=== PATIENT | female | born 1975 | race African-American/Black ===

== ENCOUNTER 2016-12-24 18:09 | Inpatient (IN) ==
[2016-12-24] MEDS ORDERED: PANTOPRAZOLE 40 MG VIAL IV STA (20:21)
[2016-12-24] MEDS ORDERED: SODIUM CHLORIDE 0.9% 500 ML IV STA (20:21)
[2016-12-24] MEDS ORDERED: ONDANSETRON 4 MG/2 ML VIAL IV STA (20:21)
[2016-12-24] MEDS ORDERED: PANTOPRAZOLE 40 MG VIAL IV ONE (20:29)
[2016-12-24] MEDS ORDERED: ONDANSETRON 4 MG/2 ML VIAL ONE (20:30)
--- NOTE | 2016-12-24 20:42 | Emergency Department Note ---
[place] Robin Brittany, am scribing for, and in the presence of, Arthur Meraz MD 20:27. Mariya Robin Charles R, MD, personally performed the services described in this documentation, ascribed by Carolina Boyle in my presence, and it is both accurate and complete . Arrival - Arrival Chief Complaint: Non-Specific Stated Complaint: Referred by Doctor-Lab Study ED Nursing Triage Note: pt had labs drawn for a study and was told to go to an er. pt has iron of 16 and H&H of 6.3 &22.4 Mode of Arrival: Ambulatory Limitations: No Limitations Source: Patient, RN Notes Reviewed Time Seen by Provider: 12/24/16 20:08 - History of Present Illness HPI Narrative: Patient is a 40 y/o black female presenting to the ED for further evaluation of Iron level of 16 and H&H of 6.3 and 22.4. Patient reports a history of fibroids and notes that she was supposed to have a large fibroid removed sometime ago, but due to financial circumstances was unable to have procedure performed. Patient states that thereafter she began to to undergo a fibroid study per [place] [facility] physician. She notes that she is trying to get her fibroid issue resolved so that she can have kids, reporting that 8 years ago she had a miscarriage. Patient throughout study has been taking some type of medication to reduce the size of the fibroid. During history and physical patient is very hoarse, and she attributes this to beginning last December 19 when she took her father to [place] for a doctor's appointment. Patient states that she does eat a gross amount of ice, "pica"-per physician. Patient denies any abdominal pain at this time but does note it is time for her menstrual cycle. She reports that she does bleed a lot during this time. She is a patient of Dr. Lyons. No other complaint/pain. Allergies/Adverse Reactions: Allergies Allergy/AdvReac Type Severity Reaction Status Date / Time acetaminophen [From Percocet] Allergy ITCHING Verified 03/10/15 15:47 Oxycodone [From Percocet] Allergy ITCHING Verified 03/10/15 15:47 Home Medications: Home Medications Medication Instructions Recorded Confirmed Type Triamterene/Hydrochlorothiazid 1 each PO DAILY 03/10/15 12/24/16 History [Triamterene-Hctz 75-50 mg Tab] Ferrous Sulfate 325 mg PO DAILY 12/24/16 12/24/16 History Gabapentin 300 mg PO DAILY 12/24/16 12/24/16 History Review of System - Review of System 12 point system: reviewed and no additional remarkable complaints except as stated - Review of System Constitutional: Present: as per HPI. Absent: chills, fever Eyes: Absent: vision change Head/Ears/Nose/Throat: Present: see HPI Respiratory: Absent: respiratory distress Cardiovascular: Absent: chest pain, palpitations Gastrointestinal: Absent: abdominal pain, nausea, vomiting, diarrhea, constipation Genitourinary female: Absent: dysuria, frequency, urgency Musculoskeletal: Absent: arm pain, back pain, leg pain, neck pain Skin: Absent: rash Neurological: Absent: headache Psychiatric: Absent: anxiety, depression Endocrine: Absent: fatigue Hematological/Lymphatic: Absent: easy bleeding, easy bruising Medical,Surgical,& Family Hx - Medical History Cardio: History of: Hypertension Reproductive: History of: Ovarian Cysts, Reproductive Problems - Surgical History Surgical History: noncontributory - Family History Family History: noncontributory - Social History Smoking Status: Never smoker Frequency of Alcohol Use: None Type of Drug Use: None Exam Vital Signs: Vital Signs Temperature 97.6 F 12/24/16 18:20 Pulse Rate 100 H 12/24/16 18:20 Respiratory Rate 18 12/24/16 18:20 Blood Pressure 149/97 12/24/16 18:20 O2 Sat by Pulse Oximetry 99 12/24/16 18:20 - General General appearance: alert, in no apparent distress (patient is obviously hoarse) - Head Head exam: Present: atraumatic, normocephalic - Eye Eye exam: Present: PERRL, EOMI, other (pale conjuntiva). Absent: normal appearance - ENT ENT exam: Present: mucous membranes moist, TM's normal bilaterally, other (pale mm) - Neck Neck exam: Present: normal inspection, full ROM, trachea midline - Chest Chest inspection: Present: normal inspection, symmetric chest wall rise - Respiratory Respiratory exam: Present: normal lung sounds bilaterally. Absent: rales, rhonchi, wheezes - Cardiovascular Cardiovascular exam: Present: regular rate, normal rhythm, normal heart sounds. Absent: murmur, rubs, gallop - Abdominal Exam Abdominal exam: Present: soft, normal bowel sounds. Absent: distention, tenderness - Rectal Exam Rectal exam: Present: heme (+) stool - Extremities Exam Extremities exam: Present: normal inspection, full ROM - Back Exam Back exam: Present: normal inspection, full ROM - Neurological Exam Neurological exam: Present: alert, oriented X3, CN II-XII intact. Absent: motor sensory deficit - Psychiatric Psychiatric exam: Present: normal affect - Skin Skin exam: Present: warm, dry Course - Consultations Consultation #1: Dr. Schwartz will admit the patient Time: 22:37 Results - Labs CBC & BMP: 12/24/16 21:14 12/24/16 21:14 Lab Results: I have reviewed the patients labs Labs: Laboratory Tests 12/24/16 12/24/16 12/24/16 21:14 21:14 21:14 WBC 9.1 RBC 3.80 Hgb 6.4 L* Hct 24.1 L MCV 63.4 L MCH 17 L MCHC 26.6 L RDW 24.9 H Plt Count 527 H MPV 9.6 Neut % (Auto) 70.2 Lymph % (Auto) 22.3 [place] % (Auto) 4.5 Eos % (Auto) 2.3 Baso % (Auto) 0.3 Neut # (Auto) 6.4 Lymph # (Auto) 2.0 [place] # (Auto) 0.4 Eos # (Auto) 0.2 Baso # (Auto) 0.0 Immature Gran % 0.4 Nucleated RBC % 0.0 Immature Gran # 0.04 Nucleated RBCs # 0.00 INR 1.0 PT Patient/Control Mix 11.0 Sodium Potassium Chloride Carbon Dioxide Anion Gap BUN Creatinine GFR Calculation BUN/Creatinine Ratio Glucose Calculated Osmolality Calcium Magnesium Total Bilirubin AST ALT Alkaline Phosphatase Troponin I Total Protein Albumin Globulin Albumin/Globulin Ratio Urine Color Yellow Urine Appearance Slightly hazy Urine pH 5.0 Ur Specific [place] 1.020 Urine Protein Negative Urine Glucose (UA) Negative Urine Ketones Negative Urine Blood Negative Urine Nitrate Negative Urine Bilirubin Negative Urine Urobilinogen < 2.0 H Urine Leukocytes Negative Urine WBC <1 Ur Squamous Epith Cells Occasional Urine Bacteria Occasional Urine Mucus Occasional Urine Test Negative 12/24/16 21:14 WBC RBC Hgb Hct MCV MCH MCHC RDW Plt Count MPV Neut % (Auto) Lymph % (Auto) [place] % (Auto) Eos % (Auto) Baso % (Auto) Neut # (Auto) Lymph # (Auto) [place] # (Auto) Eos # (Auto) Baso # (Auto) Immature Gran % Nucleated RBC % Immature Gran # Nucleated RBCs # INR PT Patient/Control Mix Sodium 145 Potassium 3.2 L Chloride 106 Carbon Dioxide 28 Anion Gap 14.2 BUN 12 Creatinine 0.80 GFR Calculation 121 BUN/Creatinine Ratio 15.00 Glucose 69 L Calculated Osmolality 285.7 Calcium 9.3 Magnesium 1.9 Total Bilirubin < 0.39 AST 10 ALT 16 Alkaline Phosphatase 68 Troponin I < 0.015 Total Protein 7.0 Albumin 3.7 Globulin 3.3 Albumin/Globulin Ratio 1.1 Urine Color Urine Appearance Urine pH Ur Specific [place] Urine Protein Urine Glucose (UA) Urine Ketones Urine Blood Urine Nitrate Urine Bilirubin Urine Urobilinogen Urine Leukocytes Urine WBC Ur Squamous Epith Cells Urine Bacteria Urine Mucus Urine Test Critical Care Time Critical Care Time: Yes Total Critical Care Time: 60 Disposition Clinical Impression: dysmenorrhagia, Uterine fibroid, Acute blood loss anemia, GI bleed Case discussed with: patient Disposition: Still a Patient Condition: Stable Time of Disposition: 22:44
[2016-12-24 21:29] LABS: Basophils % 0.3 % (0.0-0.8); Eosinophils # 0.2 10*3/uL (0.0-0.87); Eosinophils % 2.3 % (0.00-10.9); Hematocrit 24.1 VOL% (35.7-47.0); Immature Granulocytes % 0.4 %; Immature Granulocytes Absolute 0.04 #; Lymphocytes % 22.3 % (21.3-54.2); Mean Corpuscular HGB Conc 26.6 GM/DL (32-36); Mean Corpuscular Hemoglobin 17 PG (27-34); Mean Corpuscular Volume 63.4 FL (87-102); Mean Platelet Volume 9.6 FL (9.6-12.0); Monocytes # 0.4 10*3/uL (0.11-0.8); Monocytes % 4.5 % (1.7-12.7); Neutrophils # 6.4 10*3/uL (1.4-7.4); Neutrophils % 70.2 % (38.7-73.9); Platelet Count 527 T/CUMM (130-400); Red Cell Distribution Width 24.9 % (9.3-17.3); White Blood Count 9.1 T/CUMM (4-12)
[2016-12-24 21:32] LABS: Hemoglobin 6.4 GM/DL (12.0-16.0)
[2016-12-24 21:37] LABS: Apearance,Urine Slightly Hazy (Clear); Bacteria,Urine Occasional /HPF (Few); Bilirubin,Urine Negative (Negative); Blood, Urine Negative (Negative); Glucose,Urine (UA) Negative (Negative); Ketones,Urine Negative (Negative); Mucus,Urine Occasional /LPF (Occasional); Nitrite,Urine Negative (Negative); Protein,Urine Negative; Squamous Epithelial Cell,Urine Occasional /HPF (0-10); Urine Color Yellow (Yellow); Urine Urobilinogen < 2.0 EU/DL (0.2-1.0); WBC,Urine <1 /HPF (0-6)
[2016-12-24 21:51] LABS: Alanine Aminotransferase 16 U/L (13-56); Albumin 3.7 G/DL (3.4-5.0); Alkaline Phosphatase 68 U/L (45-117); Aspartate Amino Transferase 10 U/L (0-37); Bilirubin,Total < 0.39 MG/DL (0.2-1.0); Blood Urea Nitrogen 12 MG/DL (7-18); Calcium 9.3 MG/DL (8.5-10.1); Glucose 69 MG/DL (74-106); Magnesium 1.9 MG/DL (1.8-2.4); Osmolality,Calculated 285.7 MOS/KG (273-304); Potassium 3.2 MMOL/L (3.5-5.1); Sodium 145 MMOL/L (136-145); Troponin I Only < 0.015 NG/ML (0.00-0.045)
--- NOTE | 2016-12-24 22:54 | XRay Report ---
Referring Physician: Arthur Meraz Exam: XR abdomen 2V Date: December 24, 2016 at 10:29 PM Reason: Anemia, GI bleed Comparison: Abdominal x-rays January 13, 2013 Findings: There is no evidence of bowel obstruction or free air. No definite renal calculi are identified. There is thoracolumbar scoliosis, but no acute osseous process is seen. Impression: No acute abdominal process is identified. PROCEDURE INTERPRETED AT [facility] DEPARTMENT OF RADIOLOGY Final Report Signed by: Dr. Paola Mendoza
[2016-12-25] MEDS ORDERED: ONDANSETRON 4 MG/2 ML VIAL IV PRN (01:31)
[2016-12-25] MEDS ORDERED: SODIUM CHLORIDE 0.9% 1,000 ML IV SCH (01:31)
[2016-12-25] MEDS ORDERED: SODIUM CHLORIDE 0.9% 250 ML IV PRN (01:31)
[2016-12-25] MEDS ORDERED: FUROSEMIDE 20 MG/2 ML VIAL IV ONE (02:03)
[2016-12-25] MEDS ORDERED: diphenhydrAMINE CAP 25 MG CAPSULE PO ONE (02:08)
[2016-12-25] MEDS ORDERED: ACETAMINOPHEN 325 MG TABLET PO ONE (02:08)
[2016-12-25 05:34] LABS: Basophils % 0.3 % (0.0-0.8); Eosinophils # 0.2 10*3/uL (0.0-0.87); Eosinophils % 2.8 % (0.00-10.9); Hematocrit 23.1 VOL% (35.7-47.0); Immature Granulocytes % 0.4 %; Immature Granulocytes Absolute 0.03 #; Lymphocytes # 1.8 10*3/uL (1.4-4.0); Lymphocytes % 23.4 % (21.3-54.2); Mean Corpuscular HGB Conc 26.4 GM/DL (32-36); Mean Corpuscular Hemoglobin 17 PG (27-34); Mean Corpuscular Volume 63.5 FL (87-102); Monocytes # 0.3 10*3/uL (0.11-0.8); Monocytes % 4.4 % (1.7-12.7); Neutrophils # 5.2 10*3/uL (1.4-7.4); Neutrophils % 68.7 % (38.7-73.9); Platelet Count 517 T/CUMM (130-400); Red Blood Count 3.64 MC/CUMM (3.8-5.5); Red Cell Distribution Width 25.2 % (9.3-17.3); White Blood Count 7.6 T/CUMM (4-12)
[2016-12-25 06:04] LABS: Hemoglobin 6.1 GM/DL (12.0-16.0)
[2016-12-25 06:10] LABS: Bilirubin,Total 0.6 MG/DL (0.2-1.0); Calcium 8.5 MG/DL (8.5-10.1); Magnesium 1.8 MG/DL (1.8-2.4); Osmolality,Calculated 292.3 MOS/KG (273-304); Potassium 3.4 MMOL/L (3.5-5.1); Total Protein 6.2 G/DL (6.4-8.3)
[2016-12-25 06:19] LABS: Hypochromasia 1+; Microcytosis 1+; Ovalocytes Slight; Platelet Estimate Adequate
--- NOTE | 2016-12-25 07:53 | Family Practice History&Phys ---
Assessment and Plan (1) Acute blood loss anemia Status: Acute Assessment and plan: Patient has a very large uterine fibroid which causes excessive uterine bleeding during menses. Patient has been an ongoing problem for a number of years and has failed to have surgical removal. States she is seeing a physician in [place] present to arrange for removal of the fibroid. She has had at least 3 admissions for severe anemia requiring blood transfusion. She was seen yesterday in [place] and lab was obtained. They contacted her advising that she was severely anemic and to come to the emergency room. She is not on menses or bleeding at present. We will plan to transfuse today and if labs stable for discharge later this p.m. Current Visit: Yes (2) Uterine fibroid Status: Chronic Assessment and plan: Patient is had a uterine fibroid for many years is progressively enlarged in size. She is in the process of having surgical removal of the fibroid which is caused severe menstrual bleeding and anemia Current Visit: Yes (3) Hypertension Status: Chronic Assessment and plan: Stable on present medications Current Visit: Yes (4) Iron deficiency anemia Status: Chronic Assessment and plan: She has chronic iron deficiency anemia and is presently on iron therapy Current Visit: Yes History of Present Illness Chief complaint: Weakness and anemia History of present illness: Ms. Joseph is a 40 year old female PI Narrative: Patient is a 40 y/o black female presenting to the ED for further evaluation of Iron level of 16 and H&H of 6.3 and 22.4. Patient reports a history of fibroids and notes that she was supposed to have a large fibroid removed sometime ago, but due to financial circumstances was unable to have procedure performed. Patient states that thereafter she began to to undergo a fibroid study per [place] physician. She notes that she is trying to get her fibroid issue resolved so that she can have kids, reporting that 8 years ago she had a miscarriage. Patient throughout study has been taking some type of medication to reduce the size of the fibroid. During history and physical patient is very hoarse, and she attributes this to beginning last December 19 when she took her father to [place] for a doctor's appointment. Patient states that she does eat a gross amount of ice, "pica"-per physician. Patient denies any abdominal pain at this time but does note it is time for her menstrual cycle. Patient has had several previous admissions secondary to extremely heavy menses from the fibroid. Inferior degree of anemia will admit for further evaluation therapy Home Medications Medication Instructions Recorded Confirmed Type Triamterene/Hydrochlorothiazid 1 each PO DAILY 03/10/15 12/25/16 History [Triamterene-Hctz 75-50 mg Tab] Ferrous Sulfate 25 mg PO DAILY 12/24/16 12/25/16 History Gabapentin 300 mg PO DAILY 12/24/16 12/25/16 History Allergies Allergy/AdvReac Type Severity Reaction Status Date / Time acetaminophen [From Percocet] Allergy ITCHING Verified 03/10/15 15:47 Oxycodone [From Percocet] Allergy ITCHING Verified 03/10/15 15:47 Medical,Surgical,& Family Hx - Medical History Cardio: History of: Hypertension Psychological: History of: Anxiety Disorders Neurology: History of: Peripheral Neuropathy Respiratory: History of: Bronchitis Renal: No history of: Renal Problems Gastrointestinal: History of: Hemorrhoids Musculoskeletal: No history of: Musculoskeletal Problems Hematology: History of: Anemia No history of: Blood Transfusion Reaction Reproductive: History of: Ovarian Cysts, Reproductive Problems (fibroids) - Surgical History Thoracic Surgeries: Patient denies;: Organ Transplant, Lobectomy Neurologic Surgeries: Patient denies: Neurologic Surgery HEENT Surgeries: Patient denies: Tonsilectomy & Adenoidectomy - Family History Family History: Reports;: Family Cancer, Family Diabetes, Family Heart Disease, Family Hypertension Denies;: Family Anesthesia Reaction, Family Hematology, Family Psychiatric Problems, Family Stroke - Social History Smoking Status: Never smoker Frequency of Alcohol Use: None Type of Drug Use: None Marital Status: Single Lives With:: Alone Functional capacity: independent ambulation Exam - Constitutional Vitals: Period Temp Pulse Resp BP Sys/Maria Pulse Ox Last 24 Hr 97.6 F-98.6 F 73-89 11-20 121-154/66-94 93-100 General appearance: no acute distress - Head Head exam: Present: normal inspection - ENT ENT exam: Present: normal exam - Neck Neck exam: Present: normal inspection - Respiratory Respiratory exam: Present: clear to auscultation bilaterally - Cardiovascular Cardiovascular exam: Present: regular rate and rhythm - GI/Abdominal GI/Abdominal exam: Present: normal bowel sounds, soft - Extremities Exam Extremities exam: Present: normal inspection - Back Exam Back exam: Present: normal inspection - Neurological Exam Neurological exam: Present: alert - Psychiatric Psychiatric exam: Present: normal affect - Skin Skin exam: Present: normal color Results - Labs CBC & BMP: 12/25/16 04:43 12/25/16 04:42
--- NOTE | 2016-12-25 08:26 | EKG Report ---
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
[2016-12-25] MEDS ORDERED: FUROSEMIDE 40 MG/4 ML VIAL ONE (08:36)
[2016-12-25] MEDS: GABAPENTIN 300 MG CAPSULE PO SCH (08:46)
[2016-12-25] MEDS: TRIAMTERENE/HCTZ 75-50 MG TABLET PO SCH (08:46)
[2016-12-25] MEDS: FERROUS SULFATE 325 MG TABLET PO SCH (08:46)
[2016-12-25] MEDS: DOCUSATE SODIUM 100 MG CAPSULE PO SCH ×2 (08:46→21:01)
[2016-12-25] MEDS: PANTOPRAZOLE 40 MG VIAL IV SCH (08:47)
[2016-12-25] MEDS ORDERED: FUROSEMIDE 20 MG/2 ML VIAL ONE (09:26)
[2016-12-25] MEDS: SODIUM CHLOR 0.9% KCL 20 MEQ 20 MEQ/1,000 ML BAG IV SCH ×2 (13:21→21:11)
[2016-12-25 18:11] LABS: Basophils % 0.4 % (0.0-0.8); Eosinophils # 0.2 10*3/uL (0.0-0.87); Hematocrit 29.5 VOL% (35.7-47.0); Immature Granulocytes % 0.3 %; Immature Granulocytes Absolute 0.02 #; Lymphocytes # 1.6 10*3/uL (1.4-4.0); Mean Corpuscular HGB Conc 28.8 GM/DL (32-36); Mean Corpuscular Hemoglobin 19 PG (27-34); Mean Corpuscular Volume 65.4 FL (87-102); Mean Platelet Volume 9.7 FL (9.6-12.0); Monocytes # 0.3 10*3/uL (0.11-0.8); Monocytes % 3.8 % (1.7-12.7); Neutrophils # 5.3 10*3/uL (1.4-7.4); Neutrophils % 71.5 % (38.7-73.9); Platelet Count 491 T/CUMM (130-400); Red Blood Count 4.51 MC/CUMM (3.8-5.5); Red Cell Distribution Width 25.9 % (9.3-17.3); White Blood Count 7.4 T/CUMM (4-12)
[2016-12-25 18:16] LABS: Hemoglobin 8.5 GM/DL (12.0-16.0)
[2016-12-25 18:38] LABS: Hypochromasia 1+
[2016-12-25 18:39] LABS: Anisocytosis 1+; Platelet Estimate Adequate
[2016-12-26] MEDS: SODIUM CHLOR 0.9% KCL 20 MEQ 20 MEQ/1,000 ML BAG IV SCH ×2 (05:16→17:03)
[2016-12-26 06:42] LABS: Basophils % 0.4 % (0.0-0.8); Eosinophils # 0.2 10*3/uL (0.0-0.87); Eosinophils % 2.9 % (0.00-10.9); Hematocrit 28.6 VOL% (35.7-47.0); Hemoglobin 8.2 GM/DL (12.0-16.0); Immature Granulocytes % 0.4 %; Immature Granulocytes Absolute 0.03 #; Lymphocytes # 1.8 10*3/uL (1.4-4.0); Lymphocytes % 24.4 % (21.3-54.2); Mean Corpuscular HGB Conc 28.7 GM/DL (32-36); Mean Corpuscular Hemoglobin 19 PG (27-34); Mean Corpuscular Volume 65.3 FL (87-102); Mean Platelet Volume 10.5 FL (9.6-12.0); Monocytes # 0.3 10*3/uL (0.11-0.8); Monocytes % 3.9 % (1.7-12.7); Neutrophils # 5.1 10*3/uL (1.4-7.4); Platelet Count 464 T/CUMM (130-400); Red Blood Count 4.38 MC/CUMM (3.8-5.5); Red Cell Distribution Width 25.6 % (9.3-17.3); White Blood Count 7.5 T/CUMM (4-12)
[2016-12-26 07:02] LABS: Elliptocytes Few; Hypochromasia 1+; Ovalocytes Slight; Platelet Estimate Adequate
--- NOTE | 2016-12-26 08:04 | Family Practice Progress Note ---
Family Practice - PN: Subj Interval history: Patient states she is generally doing well. She has received 3 units of blood and hemoglobin is actually lower than it was prior to giving the third unit. Hemoglobin this a.m. is 8.2. Patient stool was positive for Hemoccult. On questioning patient states that she has had bright red blood in his stools for quite some time. Had initially felt that bleeding was secondary to fibroid and iron deficiency but apparently there is a possible rectal source. She is otherwise doing well.. We will consult GI today. We will continue to monitor hemoglobin and hematocret. Exam (Progress Note) - Constitutional Vitals: Period Temp Pulse Resp BP Sys/Maria Pulse Ox Last 24 Hr 98.0 F-98.7 F 70-76 18-74 112-136/62-79 97-100 Results - Labs CBC & BMP: 12/26/16 05:32 12/25/16 04:42 Assessment and Plan (1) Acute blood loss anemia Status: Acute Assessment and plan: Patient has a very large uterine fibroid which causes excessive uterine bleeding during menses. Patient has been an ongoing problem for a number of years and has failed to have surgical removal. States she is seeing a physician in [place] present to arrange for removal of the fibroid. She has had at least 3 admissions for severe anemia requiring blood transfusion. She was seen yesterday in [place] and lab was obtained. They contacted her advising that she was severely anemic and to come to the emergency room. She is not on menses or bleeding at present. We will plan to transfuse today and if labs stable for discharge later this p.m. Current Visit: Yes (2) Uterine fibroid Status: Chronic Assessment and plan: Patient is had a uterine fibroid for many years is progressively enlarged in size. She is in the process of having surgical removal of the fibroid which is caused severe menstrual bleeding and anemia Current Visit: Yes (3) Hypertension Status: Chronic Assessment and plan: Stable on present medications Current Visit: Yes (4) Iron deficiency anemia Status: Chronic Assessment and plan: She has chronic iron deficiency anemia and is presently on iron therapy Current Visit: Yes
[2016-12-26] MEDS: FERROUS SULFATE 325 MG TABLET PO SCH (08:27)
[2016-12-26] MEDS: TRIAMTERENE/HCTZ 75-50 MG TABLET PO SCH (08:27)
[2016-12-26] MEDS: GABAPENTIN 300 MG CAPSULE PO SCH (08:27)
[2016-12-26] MEDS: PANTOPRAZOLE 40 MG VIAL IV SCH (08:27)
[2016-12-26] MEDS: DOCUSATE SODIUM 100 MG CAPSULE PO SCH (08:27)
--- NOTE | 2016-12-26 10:54 | Gastrointestinal Consult Note ---
Assessment and Plan (1) GI bleed Status: Acute Assessment and plan: 12/26-Report of off and on rectal bleeding, small amounts, over past year, with hx of constipation episodes. Hx of anemia related to uterine fibroids, heavy menses. Negative stool for occult blood x 1, reported to be positive in ER. Plan and addendum to follow by Dr fields. Current Visit: Yes History of Present Illness Chief complaint: Rectal bleed History of present illness: Ms. Joseph is a 40 year old female who presented to the hospital with onset of weakness and history of anemia. Pt states that the last several days she has had an increase in her fatigue and weakness. She has a history of uterine fibroids and has been in a experimental program in [place] regarding this. She states she has very heavy menstrual cycles with menstrual pain and has a history of anemia related to this. She had had 5 blood transfusions over the last year and a half from this. She was admitted with a hemoglobin of 6.3 and is currently receiving 3 units of PRBC at present time. Pt reported on admission that she has had some off and on rectal bleeding over the past year. She states it happens randomly and when she has this she has noted it to be bright red blood on the tissue and at times on the stool. She states she does have some episodes of constipation in the past and uncertain as to if this is related to straining and hemorrhoids or not. She denies any NSAID use, weight loss, fever or chills. She is on iron therapy for her anemia daily. She has a history of eating ice as well. Denies family history of colon cancer or any endoscopy in the past. She is noted to be negative for occult blood however there is a report of her being positive in the ER. Home Medications Medication Instructions Recorded Confirmed Type Triamterene/Hydrochlorothiazid 1 each PO DAILY 03/10/15 12/25/16 History [Triamterene-Hctz 75-50 mg Tab] Ferrous Sulfate 25 mg PO DAILY 12/24/16 12/25/16 History Gabapentin 300 mg PO DAILY 12/24/16 12/25/16 History Allergies Allergy/AdvReac Type Severity Reaction Status Date / Time acetaminophen [From Percocet] Allergy ITCHING Verified 03/10/15 15:47 Oxycodone [From Percocet] Allergy ITCHING Verified 05/15/15 15:47 Medical,Surgical,& Family Hx - Medical History Cardio: History of: Hypertension Psychological: History of: Anxiety Disorders Neurology: History of: Peripheral Neuropathy Respiratory: History of: Bronchitis Renal: No history of: Renal Problems Gastrointestinal: History of: Hemorrhoids Musculoskeletal: No history of: Musculoskeletal Problems Hematology: History of: Anemia No history of: Blood Transfusion Reaction Reproductive: History of: Ovarian Cysts, Reproductive Problems (fibroids) - Surgical History Thoracic Surgeries: Patient denies;: Organ Transplant, Lobectomy Neurologic Surgeries: Patient denies: Neurologic Surgery HEENT Surgeries: Patient denies: Tonsilectomy & Adenoidectomy - Family History Family History: Reports;: Family Cancer, Family Diabetes, Family Heart Disease, Family Hypertension Denies;: Family Anesthesia Reaction, Family Hematology, Family Psychiatric Problems, Family Stroke - Social History Smoking Status: Never smoker Frequency of Alcohol Use: None Type of Drug Use: None 12 point system: reviewed and no additional remarkable complaints except as stated - Constitutional Constitutional: Present: as per HPI, fatigue - EENT Eyes: Present: as per HPI Ears: Present: as per HPI Nose, mouth and throat: Present: as per HPI - Cardiovascular Cardiovascular: Present: as per HPI - Respiratory Respiratory: Present: as per HPI - Gastrointestinal Gastrointestinal: Present: as per HPI, abdominal pain, hematochezia - Genitourinary Genitourinary: Present: as per HPI, abnormal vaginal bleeding - Musculoskeletal Musculoskeletal: Present: as per HPI - Neurological Neurological: Present: as per HPI - Psychiatric Psychiatric: Present: as per HPI - Endocrine Endocrine: Present: as per HPI - Hematologic/Lymphatic Hematologic/Lymphatic: Present: as per HPI Exam - Constitutional Vitals: Period Temp Pulse Resp BP Sys/Maria Pulse Ox Last 24 Hr 97.4 F-98.7 F 68-83 18-20 112-153/61-82 96-100 General appearance: normal weight, no acute distress - Head Head exam: Present: normal inspection, normocephalic - Eye Eye exam: Present: other (lids and conjunctiva unremarakble). Absent: scleral icterus - ENT ENT exam: Present: normal exam, normal oropharynx - Neck Neck exam: Present: normal inspection - Respiratory Respiratory exam: Present: clear to auscultation bilaterally. Absent: rales, rhonchi, wheezes - Cardiovascular Cardiovascular exam: Present: regular rate and rhythm. Absent: diastolic murmur , JVD, systolic murmur - GI/Abdominal GI/Abdominal exam: Present: normal bowel sounds, soft. Absent: ascites, distended, mass, organomegaly, tenderness - Extremities Exam Extremities exam: Present: normal inspection, full ROM - Back Exam Back exam: Present: normal inspection - Neurological Exam Neurological exam: Present: alert, oriented X3 - Psychiatric Psychiatric exam: Present: normal affect, normal mood - Skin Skin exam: Present: normal color, warm, dry Results - Labs CBC & BMP: 12/26/16 05:32 12/25/16 04:42 Lab Results: I have reviewed the past 24 hour labs
[2016-12-26] MEDS ORDERED: ALUMINUM/MAGNES/SIMETH MAX STR 30 ML UDCUP PO PRN (13:34)
[2016-12-26 14:53] LABS: Hematocrit 33.4 VOL% (35.7-47.0)
[2016-12-26 15:06] LABS: Hemoglobin 9.6 GM/DL (12.0-16.0)
[2016-12-26] MEDS ORDERED: POLYETHYLENE GLYCOL POWDER 255 GM BOTTLE PO ONE (18:00)
[2016-12-27] MEDS: SODIUM CHLOR 0.9% KCL 20 MEQ 20 MEQ/1,000 ML BAG IV SCH ×3 (03:02→14:01)
[2016-12-27] MEDS ORDERED: MAGNESIUM CITRATE 300 ML BOTTLE PO ONE (06:00)
[2016-12-27 06:57] LABS: Basophils % 0.5 % (0.0-0.8); Eosinophils # 0.3 10*3/uL (0.0-0.87); Eosinophils % 2.9 % (0.00-10.9); Hematocrit 33.6 VOL% (35.7-47.0); Hemoglobin 9.4 GM/DL (12.0-16.0); Immature Granulocytes % 0.4 %; Immature Granulocytes Absolute 0.03 #; Lymphocytes # 1.5 10*3/uL (1.4-4.0); Lymphocytes % 17.1 % (21.3-54.2); Mean Corpuscular Hemoglobin 20 PG (27-34); Mean Corpuscular Volume 70.1 FL (87-102); Mean Platelet Volume 9.4 FL (9.6-12.0); Monocytes # 0.3 10*3/uL (0.11-0.8); Monocytes % 3.9 % (1.7-12.7); Neutrophils # 6.4 10*3/uL (1.4-7.4); Neutrophils % 75.2 % (38.7-73.9); Platelet Count 417 T/CUMM (130-400); Red Blood Count 4.79 MC/CUMM (3.8-5.5); Red Cell Distribution Width 26.8 % (9.3-17.3); White Blood Count 8.6 T/CUMM (4-12)
[2016-12-27 07:26] LABS: Calcium 8.6 MG/DL (8.5-10.1); Osmolality,Calculated 286.6 MOS/KG (273-304); Potassium 3.8 MMOL/L (3.5-5.1)
[2016-12-27 07:27] LABS: Hypochromasia 2+; Macrocytosis 1+
[2016-12-27 07:28] LABS: Polychromasia Slight
[2016-12-27] MEDS: GABAPENTIN 300 MG CAPSULE PO SCH (08:44)
[2016-12-27] MEDS: FERROUS SULFATE 325 MG TABLET PO SCH (08:44)
[2016-12-27] MEDS: TRIAMTERENE/HCTZ 75-50 MG TABLET PO SCH (08:44)
[2016-12-27] MEDS: PANTOPRAZOLE 40 MG VIAL IV SCH (09:32)
[2016-12-27] MEDS ORDERED: LIDOCAINE 2% 5 ML VIAL ONE (13:50)
[2016-12-27] MEDS ORDERED: PROPOFOL 200 MG/20 ML VIAL IV ONE (13:50)
--- NOTE | 2016-12-27 14:09 | History and Physical Update ---
History and Physical Update - Physical Exam Mental Status: alert and oriented Heart: regular rate and rhythm Lung: clear to auscultation Abdomen: within normal limits Vitals: within normal limits History and Physical Changes: 40-year-old female has had recent anemia and noted bright red blood in her stool.
--- NOTE | 2016-12-27 14:10 | Operative Note ---
Date of procedure: 12/27/16 Pre-op diagnosis: Chilo blood in stool Procedure: Procedure note: Colonoscopy Physician: Dr. Tawanda Harkins Brief clinical abstract: Patient is a 40-year-old female who has had recent anemia. She has seen bright red blood in her stool off and on for approximately a year. She also has uterine fibroids and hypermenorrhea. Endoscopic findings: After informed consent was obtained, the patient was placed in the left lateral decubitus position. Digital rectal exam was performed with no palpable abnormalities felt. Pediatric videocolonoscope was inserted into the rectum and advanced to the cecum without difficulty. Retroflex view within the cecum was performed back to the level of the hepatic flexure. The endoscope was advanced back to the cecum and on withdrawal colonic mucosa was carefully examined. Bowel prep was of good quality. Withdrawal time was over 6 minutes duration. Vascular pattern throughout the colon appeared normal. No polyps were seen. There were a moderate number of diverticuli in the descending and sigmoid colon. No bleeding stigmata were evident. The endoscope was withdrawn in the rectum with retroflex view showing small internal hemorrhoids. The endoscope was removed and she appeared to tolerate the procedure well. Impression: [] Plan: [] Anesthesia: MAC Surgeon / Physician: Narinder Harkins Estimated blood loss: none Specimens: none sent Condition: stable Disposition: post procedure unit Results - Labs CBC & BMP: 12/27/16 06:45 12/27/16 06:45 Discharge Plan - Discharge Medications No Action Triamterene/Hydrochlorothiazid [Triamterene-Hctz 75-50 mg Tab] 1 each PO DAILY Ferrous Sulfate 25 mg PO DAILY Gabapentin 300 mg PO DAILY - Follow Up or Referral - Forms/Instructions
--- NOTE | 2016-12-27 14:12 | Anesthesia ---
Anesthesia Post OP - Post Ansesthetic Evaluation Patient seen in post op: Yes Resp: within normal limits CV: within normal limits Mental: within normal limits Temp: within normal limits [id number]: within normal limits Nausea and Vomiting: within normal limits Pain: within normal limits
--- NOTE | 2016-12-27 14:49 | Discharge Summary ---
Hospital Course - Hospital Course Hospital Course: Patient has a very large uterine fibroid which causes excessive uterine bleeding during menses. Patient has been an ongoing problem for a number of years and has failed to have surgical removal. States she is seeing a physician in [place] present to arrange for removal of the fibroid. She has had at least 3 admissions for severe anemia requiring blood transfusion. She was seen yesterday in [place] and lab was obtained. They contacted her advising that she was severely anemic and to come to the emergency room. She is not on menses or bleeding at present. Patient has also had some intermittent rectal bleeding was bright red in nature. HOSPITAL COURSE - the patient was admitted hospital lab and x-ray studies obtained. Patient was initially transfused with 2 units of packed RBCs but subsequently required a third unit. Patient was noted to have some intermittent bright red rectal bleeding. States been having this in addition to her heavy menses. Also note have hypokalemia which was corrected with appropriate medications.. Patient was seen in consultation by . In view of the history of severe anemia with the rectal bleeding A colonoscope was performed. Colonoscope revealed internal hemorrhoids which he felt were the probable source of her most recent bleeding. He recommended that she start a stool softener and otc hemorrhoidal medication. I will plan to recheck in the office in one week or sooner if needed. Have her call or return to emergency room IF Problems develop. Diagnosis - Discharge Diagnosis (1) Acute blood loss anemia Status: Acute (2) Internal hemorrhoid, bleeding Status: Acute (3) Iron deficiency anemia Status: Chronic (4) Uterine fibroid Status: Chronic (5) Hypertension Status: Chronic Discharge Plan - Discharge Data Disposition: Disch To Home/Self Care Condition at Discharge: Stable Discharge Diet: advance to your usual diet Activity: resume usual activities as tolerated Hygiene: no restrictions Weight Bearing at Discharge: full weight bearing Driving: no restrictions Contact your physician if you experience:: fever over 101, Nausea/Vomiting, Bleeding - Discharge Medications Continue Triamterene/Hydrochlorothiazid [Triamterene-Hctz 75-50 mg Tab] 1 each PO DAILY Ferrous Sulfate 25 mg PO DAILY Gabapentin 300 mg PO DAILY - Follow Up or Referral Follow Up: True Lyons DO [Physician] - (Have patient call for a follow-up appointment in 7-10 days) - Forms/Instructions Exam - Constitutional Vitals: Period Temp Pulse Resp BP Sys/Maria Pulse Ox Last 24 Hr 97.9 F-98.5 F 62-81 11-23 92-157/53-90 97-100 General appearance: no acute distress - Head Head exam: Present: normal inspection - Eye Pupils: Present: EDINSON - ENT ENT exam: Present: normal exam - Neck Neck exam: Present: normal inspection - Respiratory Respiratory exam: Present: clear to auscultation bilaterally - Cardiovascular Cardiovascular exam: Present: regular rate and rhythm - GI/Abdominal GI/Abdominal exam: Present: normal bowel sounds, soft - Extremities Exam Extremities exam: Present: normal inspection - Back Exam Back exam: Present: normal inspection - Neurological Exam Neurological exam: Present: alert - Psychiatric Psychiatric exam: Present: normal affect - Skin Skin exam: Present: normal color Discharge Results Labs on day of discharge: Labs from last 24 hours 12/27/16 12/27/16 12/27/16 06:45 06:45 06:43 WBC 8.6 RBC 4.79 Hgb 9.4 L Hct 33.6 L MCV 70.1 L MCH 20 L MCHC 28.0 L RDW 26.8 H Plt Count 417 H MPV 9.4 L Neut % (Auto) 75.2 H Lymph % (Auto) 17.1 L [place] % (Auto) 3.9 Eos % (Auto) 2.9 Baso % (Auto) 0.5 Neut # (Auto) 6.4 Lymph # (Auto) 1.5 [place] # (Auto) 0.3 Eos # (Auto) 0.3 Baso # (Auto) 0.0 Immature Gran % 0.4 Nucleated RBC % 0.0 Immature Gran # 0.03 Nucleated RBCs # 0.00 Polychromasia Slight Hypochromasia 2+ Macrocytosis 1+ Sodium 146 H Potassium 3.8 Chloride 111 H Carbon Dioxide 23 Anion Gap 15.8 H BUN 6 L Creatinine 0.70 GFR Calculation 143 BUN/Creatinine Ratio 8.00 Glucose 87 Calculated Osmolality 286.6 Calcium 8.6 Serum , Qual Negative 12/26/16 14:04 WBC RBC Hgb 9.6 L Hct 33.4 L MCV MCH MCHC RDW Plt Count MPV Neut % (Auto) Lymph % (Auto) [place] % (Auto) Eos % (Auto) Baso % (Auto) Neut # (Auto) Lymph # (Auto) [place] # (Auto) Eos # (Auto) Baso # (Auto) Immature Gran % Nucleated RBC % Immature Gran # Nucleated RBCs # Polychromasia Hypochromasia Macrocytosis Sodium Potassium Chloride Carbon Dioxide Anion Gap BUN Creatinine GFR Calculation BUN/Creatinine Ratio Glucose Calculated Osmolality Calcium Serum , Qual DS: Provider Date of admission: 12/24/16 23:21 Primary care physician: . No PCP Attending physician on admission: True Lyons DO Consults: 12/25/16 01:31 Consult to Case Mgmt/Social Srvs [CONS] Routine Reason for Case Mgmt/Social Srvs: Discharge Planning 12/26/16 07:56 Consult to Physician [CONS] Routine Comment: Rectal bleeding Consulting Provider: Narinder Harkins Discharging clinician: True Lyons DO
[2016-12-27 20:06] VITALS: BP 132/78
== END 2016-12-27 18:00 | disposition home or self-care (01) | DRG 812 ==
LOC: N.ED 18:09 → N.EDINP 23:21 → N.2E 12-25 00:41
PROVIDERS: ADMIT Family Medicine; ATTEND Family Medicine